=== PATIENT | male | born 1955 | race Two or more races ===

== ENCOUNTER 2019-01-22 22:38 | Emergency (ER) | payer BC ==
[~2019-01-22] VITALS: Ht 172.7 cm; Wt 90.7 kg
[2019-01-22 23:29] LABS: APPEARANCE,URINE Clear (CLEAR); BILIRUBIN,URINE Negative (NEGATIVE); BLOOD, URINE Negative Ery/uL (NEGATIVE); COLOR,URINE Yellow (YELLOW); KETONES,URINE Trace (NEGATIVE); LEUKOCYTE ESTERASE ,URINE Negative (NEGATIVE); NITRITE, URINE Negative (NEGATIVE); PH,URINE 5.5 (5.0-8.0); PROTEIN,URINE Trace mg/dl (NEGATIVE); UGLUCOSE Negative (NEGATIVE); UROBILINOGEN,URINE 0.2 EU/dL (0.2)
[2019-01-22] MEDS ORDERED: FAMOTIDINE/PF INJ 20 MG/2 ML VIAL IV ONE (23:30)
[2019-01-22] MEDS ORDERED: ONDANSETRON HCL/PF 4 MG/2 ML VIAL IVP ONE (23:30)
[2019-01-22] MEDS ORDERED: IV NS 0.9% 1,000 ML BAG IV ONE (23:30)
--- NOTE | 2019-01-22 23:30 | NUR ---
BIBSELF WITH PARTNER FROM HOME. TO ER BED 10. AAOX4. NO RESP DISTRESS NOTED. AMBULATORY. C/O EPIGASTRIC PAIN. PER PT, PT STARTED AT 9PM AFTER DRINKING PINAAPLE JUICE. PAIN WAS 8/10 SHARP, NON RADIATING. PAIN IS NOT PRESENT DURING ASSESSMENT, PT REPORTS THAT PAIN WENT AWAY UPON ARRIVAL TO ER. MANNY N/V/D. AT BEDSIDE. ORDERS RECEIVED, NOTED AND CARRIED OUT. PT REFUSED TO HAVE AN IV WELL ALL MEDICATION AND HYDRATION. MADE AWARE. BLOOD DRAWN BY TRAINING AND DEVELOPMENT SPECIALIST.
[2019-01-22 23:34] LABS: BASOPHILS % (AUTO) 0.5 % (0.0-2.0); EOSINOPHILS % (AUTO) 0.6 % (0.0-6.0); HEMATOCRIT 42 % (39-51); HEMOGLOBIN 14.2 g/dL (13.5-17.5); LYMPHOCYTES # (AUTO) 1.1 /CMM (0.8-4.8); MEAN CORPUSCULAR HGB CONC 34 g/dl (31.0-36.0); MEAN CORPUSCULAR VOLUME 96 fL (80-96); MONOCYTES # (AUTO) 0.6 /CMM (0.1-1.30); NEUTROPHILS # (AUTO) 7.4 /CMM (1.8-8.9); NEUTROPHILS % (AUTO) 79.9 % (43.0-81.0); PLATELET COUNT (AUTO) 225 /CMM (150-450); RED BLOOD CELL COUNT(AUTO) 4.36 MIL/uL (4.5-6.0); WHITE BLOOD COUNT (AUTO) 9.3 K/uL (4.3-11.0)
[2019-01-22 23:38] LABS: CALCIUM, SERUM 9.3 mg/dL (8.5-10.1); CREATININE 1.1 mg/dL (0.6-1.3); POTASSIUM 3.9 mmol/L (3.5-5.1)
[2019-01-22 23:44] LABS: ALBUMIN 3.9 g/dL (3.4-5.0); BILIRUBIN,DIRECT 0.3 mg/dL (0.0-0.2); BILIRUBIN,TOTAL 0.5 mg/dL (0.2-1.0); TOTAL PROTEIN, SERUM 7.4 g/dL (6.4-8.2)
[2019-01-22 23:53] LABS: BACTERIA,URINE Rare /HPF (None Seen); RBC,URINE 0-2 /HPF (0-2); SQUAMOUS EPITHELIAL CELL,UR Rare /HPF (None Seen); WBC,URINE 0-2 /HPF (0-3)
[2019-01-23 00:30] VITALS: BP 153/82
--- NOTE | 2019-01-23 00:30 | NUR ---
Patient discharged to home in stable condition. Written and verbal after care instructions given. Patient verbalizes understanding of instruction. Pt ambulatory with a steady gait
== END 2019-01-23 00:34 | disposition home or self-care (01) ==
LOC: ER 22:43
DX: R10.13 Epigastric pain (principal); Z95.818 Presence of other cardiac implants and grafts
CPT/HCPCS: 36415; 80048-TC; 80076-TC; 81000-TC; 83690-TC; 85025-TC